=== PATIENT | male | born 1980 | race Caucasian/White ===

== ENCOUNTER 2017-04-21 19:55 | Emergency (ER) | payer MEDICARE, MEDICAID ==
[~2017-04-21] VITALS: Ht 182.9 cm; Wt 99.0 kg
[~2017-04-21 19:55] MED LIST: NO HOME MEDS
[2017-04-21] MEDS ORDERED: acetaminophen 325mg tablet PO ONE (21:05)
[2017-04-21] MEDS ORDERED: HYDR-3965 PO (21:38)
[2017-04-21] MEDS ORDERED: AMOX500C2 PO (21:38)
[2017-04-21] MEDS ORDERED: ONDA4TAB9 PO (21:38)
[2017-04-21 22:41] VITALS: BP 128/80
== END 2017-04-21 22:43 | disposition home or self-care (01) ==
LOC: ER 19:55
DX: S42.401A Unspecified fracture of lower end of right humerus, initial encounter for closed fracture (principal); K08.89 Other specified disorders of teeth and supporting structures; K00.7 Teething syndrome; K02.9 Dental caries, unspecified; F12.10 Cannabis abuse, uncomplicated; Z88.8 Allergy status to other drugs, medicaments and biological substances; Z59.0 Homelessness; Z79.899 Other long term (current) drug therapy; X50.1XXA Overexertion from prolonged static or awkward postures, initial encounter; Y93.89 Activity, other specified; Y92.89 Other specified places as the place of occurrence of the external cause; Y99.8 Other external cause status
CPT/HCPCS: 29105; 73080; 99284

== ENCOUNTER 2017-05-31 09:35 | Emergency (ER) | payer MEDICARE, MEDICAID ==
[~2017-05-31] VITALS: Ht 177.8 cm; Wt 97.7 kg
[2017-05-31] MEDS ORDERED: normal saline 1000ML IV soln IVB ONE (09:40)
[2017-05-31 09:50] LABS: BASOPHILS % (AUTO) 0.4 % (0-1); EOSINOPHILS # (AUTO) 0.2 X10'3 (0-0.9); EOSINOPHILS % (AUTO) 1.6 % (0-6); HEMATOCRIT 44.2 % (42.0-52.0); HEMOGLOBIN 15.8 g/dl (14.0-17.9); LYMPHOCYTES # (AUTO) 3.4 X10'3 (1.1-4.8); LYMPHOCYTES % (AUTO) 34.9 % (21-51); MEAN CORPUSCULAR HEMOGLOBIN 32.7 PG (27.0-31.0); MEAN CORPUSCULAR HGB CONC 35.8 % (33.0-36.5); MEAN CORPUSCULAR VOLUME 91.4 FL (78-98); MEAN PLATELET VOLUME 7.1 FL (7.4-10.4); MONOCYTES # (AUTO) 0.6 X10'3 (0-0.9); MONOCYTES % (AUTO) 6.6 % (2-12); NEUTROPHILS # (AUTO) 5.6 X10'3 (1.8-7.7); NEUTROPHILS % (AUTO) 56.5 % (42-75); PLATELET COUNT 257 X10'3 (140-440); RED BLOOD COUNT 4.83 X10'6 (4.70-6.10); RED CELL DISTRIBUTION WIDTH 13.6 % (11.5-14.5); WHITE BLOOD COUNT 9.9 X10'3 (4.5-11.0)
[2017-05-31 10:08] LABS: ALANINE AMINOTRANSFERASE 26 U/L (12-78); ALBUMIN 3.4 G/DL (3.4-5.0); ALKALINE PHOSPHATASE 63 IU/L (46-116); ANION GAP 10 (8-16); ASPARTATE AMINO TRANSFERASE 23 U/L (10-37); BILIRUBIN,TOTAL 0.3 MG/DL (0.1-1.0); BLOOD UREA NITROGEN 13 MG/DL (7-18); BUN/CREATININE RATIO 18.1 (5.4-32.0); CALCIUM 8.5 MG/DL (8.5-10.1); CHLORIDE 104 MMOL/L (99-107); CREATININE 0.72 MG/DL (0.60-1.10); GLUCOSE 102 MG/DL (70-104); INR 0.9 INR; PARTIAL THROMBOPLASTIN TIME 24 SECONDS (22-32); POTASSIUM 3.6 MMOL/L (3.5-5.1); PROTHROMBIN TIME 9.8 SECONDS (9.0-12.0); SODIUM 140 MMOL/L (135-145); TOTAL CARBON DIOXIDE 26.4 MMOL/L (24-32); TOTAL PROTEIN 6.8 G/DL (6.4-8.2); eGFR > 90 ML/MIN
[2017-05-31 10:10] LABS: ACETAMINOPHEN < 2.0 UG/ML (10-30); ETHANOL 0.319 GM/DL (0.0-0.010)
[2017-05-31 10:37] LABS: CLARITY,URINE Clear (Clear); COLOR,URINE Yellow (Yellow); GLUCOSE, URINE Negative (Neg); KETONES,URINE Negative (Neg); LEUKOCYTE ESTERASE ,URINE Negative (Neg); NITRITES, URINE Negative (Neg); OCCULT BLOOD,URINE Negative (Neg); PROTEIN,URINE Negative (Neg); UROBILINOGEN,URINE 0.2 E.U/dL (0.2-1.0)
[2017-05-31 10:38] LABS: UA COLLECTION TYPE CLN CATCH MIDSTREAM
[2017-05-31 10:42] LABS: URINE AMPHETAMINE SCREEN NEGATIVE (Neg); URINE BARBITUATE SCREEN NEGATIVE (Neg); URINE BENZODIAZEPINES SCREEN NEGATIVE (Neg); URINE CANNABINOID SCREEN POSITIVE (Neg); URINE COCAINE SCREEN NEGATIVE (Neg); URINE METHADONE SCREEN NEGATIVE (Neg); URINE OPIATE SCREEN NEGATIVE (Neg); URINE PHENCYCLIDINE SCREEN NEGATIVE (Neg)
[2017-05-31 14:58] VITALS: BP 112/47
== END 2017-05-31 14:50 ==
LOC: ER 09:35
DX: F10.129 Alcohol abuse with intoxication, unspecified (principal); G93.41 Metabolic encephalopathy; F29 Unspecified psychosis not due to a substance or known physiological condition; F23 Brief psychotic disorder; M06.9 Rheumatoid arthritis, unspecified; F15.90 Other stimulant use, unspecified, uncomplicated; F12.90 Cannabis use, unspecified, uncomplicated; Z59.0 Homelessness; Z88.6 Allergy status to analgesic agent; Z60.2 Problems related to living alone; Z56.0 Unemployment, unspecified
CPT/HCPCS: 36415; 71045; 80053; 80305; 80320; 80329; 81003; 83735; 84484; 85025; 85610; 85730; 96360; 99291; J7030

== ENCOUNTER 2024-08-17 12:58 | Emergency (ER) | payer MEDICARE, MEDICAID ==
[~2024-08-17] VITALS: Ht 170.2 cm; Wt 175.0 kg
[2024-08-17 12:59] VITALS: TEMP 97.8
--- NOTE | 2024-08-17 13:01 | Physician Documentation ---
History of Present Illness ~ Stated Complaint: OD Time Seen by MD: 13:01 Primary Medical Doctor: None HPI 4 x2 nasal, 4 iv opa right nare 44-year-old male presents to the ED with a suspected of fentanyl overdose. According to EMS he was receiving assisted ventilations on [place] received a total of 8 mg of nasal Narcan without a positive affect after receiving 4 mg IV there was a positive affect and patient became responsive and begin to follow up commands. Patient reports smoking fentanyl denies any alcohol use. Patient has been tachycardic and upon arrival was 144 beats per minute Day of Ingestion: August 17, 2024 Medication Reconciliation Allergies: Coded Allergies: ibuprofen (Verified Allergy, Unknown, 04/21/17) Scheduled Naloxone HCl (Narcan), 1 SPRAYS BOTHNARES ONCE Miscellaneous Medications Home Med List (No Home Medications), (Reported) Past Medical History Past Medical History: UTI, Rheumatoid Arthritis Past Surgical History: no surgical history Patient History: Patient reports no known family medical history. Alcohol Use: Occasionally Drug Use: marijuana, methamphetamine Lives with: Alone Lives In: Homeless Occupation: unemployed Review of Systems All Other Systems at this time: Reviewed and Negative ROS As stated above in the HPI, otherwise all systems are reviewed and negative. Physical Exam Physical Exam General: Alert, no apparent distress. grosslylarge body habitus Respiratory: Lungs clear, no respiratory distress. Chest: No accessory muscle use. Cardiovascular: Regular rate and rhythm, no murmurs. Gastrointestinal: Soft, nontender, nondistended. Bowels sounds present. Extremities: Normal range of motion, no deformity. Neurologic: Oriented x4. Psychiatric: Normal mood and affect. Skin: Normal color, warm and dry. No edema, no ecchymosis. Progress Results/Orders Results/Orders Orders - ASHISH ELLISON FIRE PRODUCTION OPERATOR Chest,Single View (08/17/24 13:04) Monitor (08/17/24 13:04) Saline Lock (08/17/24 13:04) Oxygen (08/17/24 13:04) Hs Troponin I W Calculations (08/17/24 15:04) Hs Troponin I W Calculations (08/17/24 16:04) Completed Orders - ASHISH ELLISON FIRE PRODUCTION OPERATOR Naloxone 2mg/2ml Inj (Narcan 2mg/2ml Inj (08/17/24 13:02) Chest,Single View (08/17/24 13:04) Cbc/Diff (08/17/24 13:04) PBNP (08/17/24 13:04) Electrocardiogram (08/17/24 13:04) CMP (08/17/24 13:04) Hs Troponin I W Calculations (08/17/24 13:04) Vital Signs 08/17/24 08/17/24 12:59 14:22 Temp 97.8 Pulse 145 123 Resp 25 20 B/P (MAP) 159/86 148/97 (114) Pulse Ox 95 95 O2 Flow Rate 0 Laboratory Tests Test 08/17/24 13:28 White Blood Count 14.0 H Red Blood Count 5.15 Hemoglobin 14.8 Hematocrit 43.4 Mean Corpuscular Volume 84.3 Mean Corpuscular Hemoglobin 28.7 Mean Corpuscular Hemoglobin Concent 34.1 Red Cell Distribution Width 14.9 H Platelet Count 289 Mean Platelet Volume 7.8 Neutrophils (%) (Auto) 80.1 H Lymphocytes (%) (Auto) 14.8 L Monocytes (%) (Auto) 4.2 Eosinophils (%) (Auto) 0.4 Basophils (%) (Auto) 0.5 Neutrophils # (Auto) 11.2 H Lymphocytes # (Auto) 2.1 Monocytes # (Auto) 0.6 Eosinophils # (Auto) 0.1 Basophils # (Auto) 0.1 CBC Comment Sodium Level 141 Potassium Level 3.6 Chloride Level 106 Carbon Dioxide Level 23.0 L Anion Gap 12 Blood Urea Nitrogen 19 H Creatinine 1.09 Estimated GFR/1.73 m2 73 BUN/Creatinine Ratio 17.4 Glucose Level 148 H Calcium Level 8.6 Total Bilirubin 0.5 Aspartate Amino Transf (AST/SGOT) 25 Alanine Aminotransferase (ALT/SGPT) 45 Alkaline Phosphatase 71 Troponin I High Sensitivity 14 Pro-B-Type Natriuretic Peptide 147 H Total Protein 7.1 Albumin 3.4 Globulin 3.7 Albumin/Globulin Ratio 0.9 L Chemistry Comments Medical Decision Making Findings THIS PLEASANT 44-YEAR-OLD MALE WITH A FENTANYL ABUSE PROBLEM HAS BEEN STABLE THROUGHOUT HIS STAY HERE IN THE ED. LABORATORY RESULTS ARE OVERALL REASSURING OTHER THAN HAVING A MODERATELY ELEVATED PRO BNP. AND THIS CORRELATES WITH WORSENING HEALTH CONDITION FOR THE PATIENT CONSIDERING HIS BODY HABITUS AND RECREATIONAL DRUG USE.. I DID OFFER THE PATIENT ADMISSION FOR CARDIOVASCULAR EVALUATION AND LIKELY AN ECHO HOWEVER PATIENT ADAMANTLY REFUSED. SHE INDICATED THAT HE WOULD LIKE TO LEAVE AGAINST MEDICAL ADVICE. PATIENT IS ALERT ORIENTED AND APPROPRIATE TO THE SITUATION. PATIENT HAS TACHYCARDIA HAS A REDUCED MODESTLY DOWN TO 122 FROM 144 UPON ARRIVAL. I SUSPECT PATIENT IS TACHYCARDIC AT BASELINE. HE IS NOT PRESENTING ANY ACUTE DISTRESS. Differential Dx:Considerations: Include: Alcohol abuse, Anxiety, Bipolar disorder, Conversion disorder, Delirium, Depression, Drug Overdose-Accidental, Drug Overdose-Intentional, Encephalopathy, Hallucinations, Homicidal, Liver failure, Panic disorder, Personality disorder, Renal failure, Respiratory failure, Schizophrenia, Substance abuse, Suicidal attempt, Suidical gesture, Other Departure Disposition: LEFT AGAINST MEDICAL ADVICE Impression: Primary Impression: Poisoning by opiate or related narcotic Additional Impression: Elevated brain natriuretic peptide (BNP) level Condition: Fair Discharge Instructions: Overdose, Adult Referrals: NO PRIMARY CARE PROVIDER (PCP) Prescriptions Naloxone HCl (Narcan) 4 Mg/Actuation [place] 1 SPRAYS BOTHNARES ONCE for 14 Days, #1 EA 0 Refills Prov: ASHISH ELLISON NP 08/17/24 Signature Scribe Signature: G Attestation: The note accurately reflects work and decisions made by me.Ashish Steel NP 08/17/24 14:44 ASHISH ELLISON NP August 17, 2024 13:01
[2024-08-17] MEDS ORDERED: naloxone 2mg/2ml inj IV STA (13:02)
--- NOTE | 2024-08-17 13:05 | ELECTROCARDIOGRAPH REPORT ---
[facility] Test Date: 2024-08-17 Test Time: 13:00:19 Pat Name: CELESTINO CORTEZ Department: EMERGENCY ROOM Room: Gender: M Rug Frame Mounter: NILDA : 1980 Requested By: ISMAEL ELLISON Order Number: [id number] Reading MD: Measurements Intervals [place] Rate: 144 P: 35 MD: 115 QRS: 70 QRSD: 107 T: 40 QT: 287 QTc: 444 Interpretive Statements Sinus tachycardia Probable anteroseptal infarct, old Borderline ST depression, diffuse leads Please click the below link to view image of tracing.
--- NOTE | 2024-08-17 13:36 | RADIOLOGY REPORT ---
EXAM: DI CHEST,SINGLE VIEW Indication: CP Technique: Single frontal view of the chest was obtained Comparison: None FINDINGS: Lines and Tubes: None Lungs: No focal consolidation. Pleura: No effusion. No pneumothorax. Cardiomediastinal contours: Unremarkable Bones: No acute osseous abnormality. IMPRESSION: No acute cardiopulmonary disease.
[2024-08-17 13:54] LABS: BASOPHILS # (AUTO) 0.1 X10'3 (0-0.2); BASOPHILS % (AUTO) 0.5 % (0-1); EOSINOPHILS # (AUTO) 0.1 X10'3 (0-0.9); EOSINOPHILS % (AUTO) 0.4 % (0-6); HEMATOCRIT 43.4 % (42.0-52.0); HEMOGLOBIN 14.8 g/dl (14.0-17.9); LYMPHOCYTES # (AUTO) 2.1 X10'3 (1.1-4.8); LYMPHOCYTES % (AUTO) 14.8 % (21-51); MEAN CORPUSCULAR HEMOGLOBIN 28.7 PG (27.0-31.0); MEAN CORPUSCULAR HGB CONC 34.1 g/dL (33.0-36.5); MEAN CORPUSCULAR VOLUME 84.3 FL (78-98); MEAN PLATELET VOLUME 7.8 FL (7.4-10.4); MONOCYTES # (AUTO) 0.6 X10'3 (0-0.9); MONOCYTES % (AUTO) 4.2 % (2-12); NEUTROPHILS # (AUTO) 11.2 X10'3 (1.8-7.7); NEUTROPHILS % (AUTO) 80.1 % (42-75); PLATELET COUNT 289 X10'3 (140-440); RED BLOOD COUNT 5.15 X10'6 (4.70-6.10); RED CELL DISTRIBUTION WIDTH 14.9 % (11.5-14.5)
[2024-08-17 14:21] LABS: ALANINE AMINOTRANSFERASE 45 U/L (12-78); ALBUMIN 3.4 G/DL (3.4-5.0); ALBUMIN/GLOBULIN RATIO 0.9 (1.1-1.5); ALKALINE PHOSPHATASE 71 IU/L (46-116); ANION GAP 12 (8-16); ASPARTATE AMINO TRANSFERASE 25 U/L (10-37); BILIRUBIN,TOTAL 0.5 MG/DL (0.1-1.0); BLOOD UREA NITROGEN 19 MG/DL (7-18); BUN/CREATININE RATIO 17.4 (10.0-20.0); CALCIUM 8.6 MG/DL (8.5-10.1); CHLORIDE 106 MMOL/L (99-107); CREATININE 1.09 MG/DL (0.60-1.10); GLUCOSE 148 MG/DL (70-104); POTASSIUM 3.6 MMOL/L (3.5-5.1); SODIUM 141 MMOL/L (135-145); TOTAL PROTEIN 7.1 G/DL (6.4-8.2); eCRCL 79 ML/MIN; eGFR 73 ML/MIN
[2024-08-17 14:22] VITALS: BP 148/97; PULSE 123; RESP 20; O2SAT 95
[2024-08-17 14:29] LABS: PRO BRAIN NATRIURETIC PEPTIDE 147 PG/ML (0-125)
[2024-08-17] MEDS ORDERED: NALO4SPR BOTHNARES (14:44)
== END 2024-08-17 15:04 | disposition left against medical advice (07) ==
LOC: ER 12:58
DX: T40.601A Poisoning by unspecified narcotics, accidental (unintentional), initial encounter (principal); R00.0 Tachycardia, unspecified; R79.89 Other specified abnormal findings of blood chemistry; M06.9 Rheumatoid arthritis, unspecified; Z88.6 Allergy status to analgesic agent; Y92.89 Other specified places as the place of occurrence of the external cause
CPT/HCPCS: 36415; 71045; 80053; 83880; 84484; 85025; 93005; 99285

== ENCOUNTER 2024-11-01 00:13 | Emergency (ER) | payer MEDICARE, MEDICAID ==
[~2024-11-01] VITALS: Ht 172.7 cm; Wt 153.4 kg
[~2024-11-01 00:13] MED LIST changes: +NALO4SPR BOTHNARES
--- NOTE | 2024-11-01 00:21 | Physician Documentation ---
History of Present Illness ~ General Stated Complaint: DRY FOOT Time Seen by MD: 00:21 OK to notify your PCP?: Yes Primary Medical Doctor: None Source: patient, RN/MD, RN notes reviewed, old records Mode of Arrival: POV Exam Limitations: no limitations History of Present Illness Initial Comments This patient is a 44 y/o male who presents to the ED with chief complaint of dry and cracked feet. The patient states that over the past few days they have then increasingly more dry and irritated. He states they have more recently become painful especially on his heels. He denied any wounds, redness, swelling, fevers or shortness of breath. Patient denies any associated symptoms at this time. Patient denies any alleviating or exacerbating factors. Medication Reconciliation Allergies: Coded Allergies: ibuprofen (Verified Allergy, Unknown, 04/21/17) Scheduled Naloxone HCl (Narcan), 1 SPRAYS BOTHNARES ONCE Miscellaneous Medications Home Med List (No Home Medications), (Reported) Past Medical History Past Medical History: UTI, Rheumatoid Arthritis Past Surgical History: no surgical history Patient History: Patient reports no known family medical history. Smoking Status: Current every day smoker Alcohol Use: Occasionally Drug Use: marijuana, methamphetamine Lives with: Alone Lives In: Homeless Occupation: unemployed Review of Systems All Other Systems at this time: Reviewed and Negative Constitutional: Reports: see HPI Physical Exam Physical Exam Vital Signs: RN Vital Signs have been reviewed: Yes Physical Exam General: The patient is well developed, well nourished, nontoxic appearing and is in no acute distress. Skin: Patient with dry and cracked skin to bilateral heels, no signs of cellulitis. [place], warm and dry with no rashes. HEENT: Head was normocephalic and atraumatic. Eyes - pupils equal, round, reactive to light and accommodation. Extraocular movements were intact. Conjunctivae were nonicteric. The mouth and oropharynx were clear with moist mucous membranes. There were no pharyngeal exudates or erythema. Neck: Supple and nontender. There was no jugular venous distention, lymphaden opathy, thyromegaly or masses. Chest: Clear to auscultation bilaterally without wheezes, rales or rhonchi. No accessory muscle use. No dullness to percussion. Heart: Rate regular and rhythmic. S1, S2. No murmurs. Palpation of the chest wall was normal. No rubs or thrills. Abdomen: Soft, nontender and nondistended. Positive bowel sounds. No guarding or rebound. No hepatosplenomegaly or palpable masses. Extremities: (SEE SKIN) Edema to bilateral lower extremities. Otherwise no cyanosis or clubbing. The patient moves all extremities. Pulses were equal and symmetric. Neurologic: Cranial nerves II-XII were intact. Sensation was intact to light touch throughout. Motor strength was 5/5 in all four extremities. Deep tendon reflexes were intact in both upper and lower extremities. Psychologic: The patient was oriented to person, place and time. The patient demonstrated appropriate judgement and insight. Progress Results/Orders Reviewed/noted all lab results: Yes Results/Orders Completed Orders - NIMO MCNAMARA MD Hydrocodone/Apap 5/325mg Tab ([place] 5/32 (11/01/24 00:25) Medications Received in ER Medications (Trade) Dose Ordered Sig/Kiya Route PRN Reason Start Time Stop Time Status Last Admin Dose Admin ([place] 5/325mg tablet) 1 tab ONCE ONCE PO 11/01/24 00:25 11/01/24 00:26 DC 11/01/24 00:40 1 TAB Vital Signs 11/01/24 00:18 Pulse 87 Resp 16 B/P (MAP) 137/77 Pulse Ox 94 O2 Flow Rate 0 Re-Evaluation Re-Evaluation : Re-Evaluation: Unchanged Progress Patient was seen and examined. Patient is given reassurance. The patient had some dry feet some chronic calluses and a healing burn. Extremities are a bit red but no signs of cellulitis at this time. Patient is given reassurance supportive care measures keep your feet clean as well as moisturizers however he is homeless lives at [facility] so as ability to have a manicure are somewhat difficult. Patient was asking for his nails to be cut his nails are fine we will not cut his nails we did recommend that he can follow up at the [facility] then. Patient was asking for pain medications he was given a low-dose [place] 5 mg and discharged home. No antibiotics were given Medical Decision Making Additional info obtained from: old records Departure Time of Disposition: 00:21 Disposition: 01 HOME / SELF CARE / HOMELESS Impression: Primary Impression: Encounter for medical screening examination Condition: Stable Discharge Instructions: Medical Screening Exam Additional Instructions: [facility] as [facility] offer medical and psychiatric services from 7:30 a.m. to 3:00 p.m. on Fridays. You may refer to the resources included in your paperwork. Referrals: NO PRIMARY CARE PROVIDER (PCP) Education Educated: Patient Educated regarding: diagnosis, treatment, need for follow up Signature Scribe Signature: Scribed for Nimo Mcnamara MD by Ange Mora . 11/01/24 00:21 Attestation: The note accurately reflects work and decisions made by me.Nimo Mcnamara MD 11/01/24 00:21 NIMO MCNAMARA MD Nov 01, 2024 00:21
[2024-11-01] MEDS: HYDROcodone/acetaminophen 5mg/325mg tablet PO ONE (00:40)
[2024-11-01 01:04] VITALS: BP 127/77; PULSE 86; RESP 18; TEMP 98.7; O2SAT 99
[2024-11-02] MEDS ORDERED: BUTE12CR TOP (06:33)
== END 2024-11-01 01:05 | disposition home or self-care (01) ==
LOC: ER 00:14
DX: Z00.8 Encounter for other general examination (principal); F12.90 Cannabis use, unspecified, uncomplicated; F17.200 Nicotine dependence, unspecified, uncomplicated; F15.10 Other stimulant abuse, uncomplicated; M06.9 Rheumatoid arthritis, unspecified; Z59.00 Homelessness unspecified; Z88.6 Allergy status to analgesic agent
CPT/HCPCS: 99283

== ENCOUNTER 2024-11-02 04:34 | Emergency (ER) | payer MEDICARE, MEDICAID ==
[~2024-11-02] VITALS: Ht 172.7 cm; Wt 153.0 kg
[2024-11-02 06:29] VITALS: TEMP 97.9
[2024-11-02] MEDS ORDERED: BUTE12CR TOP (06:33)
--- NOTE | 2024-11-02 06:35 | Physician Documentation ---
History of Present Illness ~ Chief Complaint: Foot pain Stated Complaint: FOOT PAIN Time Seen by MD: 06:04 Primary Medical Doctor: None Source: patient Mode of Arrival: POV Exam Limitations: no limitations HPI Patient in with pain in both of his feet. Was seen here yesterday and received [place]. Denies any injury. States that he has an apartment and did wash his feet yesterday. States the problem started 10 years ago in [place]. Wears p lastic shoes. Tetanus witin 5 years: No Medication Reconciliation Allergies: Coded Allergies: ibuprofen (Verified Allergy, Unknown, 04/21/17) Scheduled Butenafine HCl (Lotrimin Ultra), 1 APPLIC TOP Q12H Naloxone HCl (Narcan), 1 SPRAYS BOTHNARES ONCE Miscellaneous Medications Home Med List (No Home Medications), (Reported) Past Medical History Past Medical History: UTI, Rheumatoid Arthritis Past Surgical History: no surgical history Patient History: Patient reports no known family medical history. Alcohol Use: Occasionally Drug Use: marijuana, methamphetamine Lives with: Alone Lives In: Homeless Occupation: unemployed Review of Systems All Other Systems at this time: Reviewed and Negative Physical Exam Vital Signs: Temperature: 97.9, Heart Rate: 100, Respiratory Rate: 16, BP: 138/75, Pulse Oximetry: 100, Weight: 153.000 Oxygen Flow Rate: 0 General Appearance: alert, WD/WN Head: normal inspection Neck: non-tender, full range of motion Respiratory: normal breath sounds, no respiratory distress Cardiovascular: regular rate, rhythm, no edema Feet Bilateral feet with white lice tissue along the bottom consistent with fungal infection, no obvious bacterial infection; good pulses and sensation Distal Function: no motor deficit Skin Bilateral fungal infections on the bottom of the feet, moist Neurologic: oriented x4, memory intact Psychiatric: normal mood/affect Progress Progress Note Patient with athlete's foot. Giving script for Lotrimin. Gave care in structions for cleaning and allowing feet to dry and not putting them in the plastic shoes. He is to apply powder a couple of times a day to keep feet dry. Discharged in good condition to follow up with PCP if not improving. Results/Orders Results/Orders Vital Signs 11/02/24 11/02/24 11/02/24 11/02/24 04:40 06:05 06:29 06:42 Temp 97.9 97.9 97.9 Pulse 83 71 100 79 Resp 16 18 16 20 B/P (MAP) 145/79 144/85 (104) 138/75 (96) 139/79 Pulse Ox 97 100 100 97 O2 Flow Rate 0 0 0 Departure Impression: Primary Impression: Fungal infection Condition: Stable Discharge Instructions: Athlete's Foot, [id number] Additional Instructions: You need to wash your feet daily then dry thoroughly before putting any shoes or socks on. Apply the Lotrimin antifungal cream twice a day on the bottom of your feet. You can get this [id number] as well. A couple of times a day you should also put powder on your feet like a gold vargas powder in order to keep yo ur skin dry. Follow up with your doctor if not improving. Referrals: NO PRIMARY CARE PROVIDER (PCP) Prescriptions Butenafine HCl (Lotrimin Ultra) 1 % Cream..g. 1 APPLIC TOP Q12H for 14 Days, #30 GM 0 Refills Prov: DIANE AGUILAR MD 11/02/24 Education Educated: Patient Educated regarding: diagnosis, treatment, need for follow up Signature Scribe Signature: no scribe used Attestation: no scribe used DIANE AGUILAR MD Nov 02, 2024 06:35
[2024-11-02 06:42] VITALS: BP 139/79; PULSE 79; RESP 20; O2SAT 97
== END 2024-11-02 06:45 | disposition home or self-care (01) ==
LOC: ER 04:35
DX: B35.3 Tinea pedis (principal); M06.9 Rheumatoid arthritis, unspecified; F12.90 Cannabis use, unspecified, uncomplicated; F15.90 Other stimulant use, unspecified, uncomplicated; Z87.440 Personal history of urinary (tract) infections; Z88.6 Allergy status to analgesic agent; Z59.00 Homelessness unspecified
CPT/HCPCS: 99282

== ENCOUNTER 2024-11-22 18:26 | Emergency (ER) | payer MEDICARE, MEDICAID ==
[~2024-11-22] VITALS: Ht 172.7 cm; Wt 159.1 kg
[~2024-11-22 18:26] MED LIST changes: +BUTE12CR TOP
[2024-11-22] MEDS: HYDROcodone/acetaminophen 5mg/325mg tablet PO ONE (21:09)
[2024-11-22] MEDS ORDERED: CEPH-585 PO (21:15)
--- NOTE | 2024-11-22 21:15 | Physician Documentation ---
History of Present Illness ~ Chief Complaint: Foot pain Stated Complaint: FOOT PAIN Time Seen by MD: 20:51 Primary Medical Doctor: None HPI Patient is a 44-year-old gentleman that presents to the emergency department for bilateral foot pain with associated extremity edema times several weeks. She reports this is a chronic problem for him. Reports that he is currently on house and has to walk around often and does not have proper foot coverings or the ability to keep his feet clean and dry. Tetanus witin 5 years: No Medication Reconciliation Allergies: Coded Allergies: ibuprofen (Verified Allergy, Unknown, 04/21/17) Scheduled Butenafine HCl (Lotrimin Ultra), 1 APPLIC TOP Q12H Cephalexin*Monohydrate* (Keflex*), 1 CAP PO QID Naloxone HCl (Narcan), 1 SPRAYS BOTHNARES ONCE Miscellaneous Medications Home Med List (No Home Medications), (Reported) Past Medical History Past Medical History: UTI, Rheumatoid Arthritis Past Surgical History: no surgical history Patient History: Patient reports no known family medical history. Alcohol Use: Occasionally Drug Use: marijuana, methamphetamine Lives with: Alone Lives In: Homeless Occupation: unemployed Review of Systems ROS As stated above in the HPI, otherwise all systems are reviewed and negative. Physical Exam Vital Signs: Temperature: 98.0, Heart Rate: 70, Respiratory Rate: 16, BP: 143/81, Pulse Oximetry: 97, Weight: 159.090 Oxygen Flow Rate: 0 Physical Exam VITALS: Reviewed and as above. GENERAL: Alert, no apparent distress. HEENT: Normocephalic, atraumatic, PERRL, EOMI, dry mucosa, no erythema RESPIRATORY: Lungs clear, normal breath sounds, no respiratory distress. CHEST: No accessory muscle use, no retractions CV: Regular rate, rhythm, no edema, no murmur, No: JVD GI: Soft, non-tender, bowels sounds present, no rebound, guarding, or rigidity BACK: No CVA tenderness, or swelling MUSCULOSKELETAL No deformities, bilateral lower extremity edema tissue maceration to the bottom of feet bilaterally SKIN: Warm and dry, edema patient bilateral lower extremities and tissue maceration to the bottom of feet bilaterally NEURO: Oriented x4, No motor or sensory deficit PSYCH: Normal mood and affect, no agitation Progress Results/Orders Results/Orders Completed Orders - AZEB MTZ ADULT CARE MANAGER Cbc/Diff (11/22/24 20:59) CMP (11/22/24 20:59) Hydrocodone/Apap 5/325mg Tab ([place] 5/32 (11/22/24 21:00) [place] (11/22/24 21:00) Medications Received in ER Medications (Trade) Dose Ordered Sig/Kiya Route PRN Reason Start Time Stop Time Status Last Admin Dose Admin ([place] 5/325mg tablet) 1 tab ONCE ONCE PO 11/22/24 21:00 11/22/24 21:01 DC 11/22/24 21:09 1 TAB Vital Signs 11/22/24 18:32 Temp 98.0 Pulse 70 Resp 16 B/P (MAP) 143/81 Pulse Ox 97 O2 Flow Rate 0 Laboratory Tests Test 11/22/24 21:17 White Blood Count 7.7 Red Blood Count 4.39 L Hemoglobin 13.2 L Hematocrit 39.0 L Mean Corpuscular Volume 88.7 Mean Corpuscular Hemoglobin 30.0 Mean Corpuscular Hemoglobin Concent 33.9 Red Cell Distribution Width 14.9 H Platelet Count 222 Mean Platelet Volume 7.4 Neutrophils (%) (Auto) 69.7 Lymphocytes (%) (Auto) 23.0 Monocytes (%) (Auto) 4.9 Eosinophils (%) (Auto) 1.6 Basophils (%) (Auto) 0.8 Neutrophils # (Auto) 5.4 Lymphocytes # (Auto) 1.8 Monocytes # (Auto) 0.4 Eosinophils # (Auto) 0.1 Basophils # (Auto) 0.1 CBC Comment Sodium Level 140 Potassium Level 3.6 Chloride Level 105 Carbon Dioxide Level 27.6 Anion Gap 7 L Blood Urea Nitrogen 8 Creatinine 0.80 Estimated GFR/1.73 m2 > 90 BUN/Creatinine Ratio 10.0 Glucose Level 73 Lactic Acid Level 1.2 Calcium Level 8.5 Total Bilirubin 0.9 Aspartate Amino Transf (AST/SGOT) 56 H Alanine Aminotransferase (ALT/SGPT) 74 Alkaline Phosphatase 92 Total Protein 6.8 Albumin 3.1 L Globulin 3.7 Albumin/Globulin Ratio 0.8 L Chemistry Comments Medical Decision Making Findings This patient presents with initial presentation of local erythema, warmth, swelling concerning for cellulitis. Sensitivity/pain to light touch around the erythematous area. No lymphangitic spread visible and no fluid pockets or fluctuance concerning for abscess noted. Low concern for osteomyelitis or DVT. No immune compromise, bullae, pain out of proportion, or rapid progression concerning for necrotizing fasciitis. Patient to be discharged home with keflex with follow up with their PMD. Foot Diff Dx:Considerations: Include: Abrasion, Arthritis, Cellulitis, Contusion, Dislocation, DJD, Fracture-metatarsal, Fracture-phalynx, Fracture- tarsal, Gout, Hematoma, Ingrown toenail, Laceration, Malunion, Neurovascular injury, Open fracture, Paronychia, Puncture, Rheumatoid, Sprain, Septic, Subungual hematoma, Ulcer, Other Departure Disposition: HOME / SELF CARE / HOMELESS Impression: Primary Impression: Cellulitis Additional Impressions: Foot pain Lower extremity edema Condition: Stable Discharge Instructions: Foot Pain Additional Instructions: This patient presents with initial presentation of local erythema, warmth, swelling concerning for cellulitis. Sensitivity/pain to light touch around the erythematous area. No lymphangitic spread visible and no fluid pockets or fluctuance concerning for abscess noted. Low concern for osteomyelitis or DVT. No immune compromise, bullae, pain out of proportion, or rapid progression concerning for necrotizing fasciitis. Patient to be discharged home with keflex with follow up with their PMD. Return to the emergency department with any worsening of his current symptoms or any additional concerning symptoms that we discussed here today increased redness fever chills nausea vomiting diarrhea or any other concerning symptoms. Patient will present with dry socks and education on the importance of keeping his feet as dry and clean as possible. Referrals: NO PRIMARY CARE PROVIDER (PCP) Prescriptions Cephalexin*Monohydrate* (Keflex*) 500 Mg Capsule 1 CAP PO QID for 7 Days, #28 CAP Prov: AZEB MTZ 11/22/24 Education Educated: Patient Educated regarding: diagnosis, treatment, need for follow up Signature Scribe Signature: A Attestation: Scribed for Azeb Mtz by TYRA Luciano . 11/22/24 22:01 AZEB MTZ Nov 22, 2024 21:15
[2024-11-22 21:27] LABS: MEAN PLATELET VOLUME 7.4 FL (7.4-10.4); RED CELL DISTRIBUTION WIDTH 14.9 % (11.5-14.5)
[2024-11-22 21:39] LABS: CREATININE 0.80 MG/DL (0.60-1.10); TOTAL CARBON DIOXIDE 27.6 MMOL/L (24-32); eCRCL 112 ML/MIN; eGFR > 90 ML/MIN
[2024-11-22 22:24] VITALS: BP 128/84; PULSE 69; RESP 20; TEMP 98.6; O2SAT 98
== END 2024-11-22 22:25 | disposition home or self-care (01) ==
LOC: ER 18:27
DX: L03.116 Cellulitis of left lower limb (principal); L03.115 Cellulitis of right lower limb; M06.9 Rheumatoid arthritis, unspecified; F12.90 Cannabis use, unspecified, uncomplicated; F15.90 Other stimulant use, unspecified, uncomplicated; Z88.6 Allergy status to analgesic agent
CPT/HCPCS: 36415; 80053; 83605; 85025; 99283

== ENCOUNTER 2024-11-29 04:58 | Emergency (ER) | payer MEDICARE, MEDICAID ==
[~2024-11-29] VITALS: Ht 172.7 cm; Wt 160.0 kg
[~2024-11-29 04:58] MED LIST changes: +CEPH-585 PO
[2024-11-29 05:09] VITALS: BP 161/74; PULSE 77; RESP 16; TEMP 98; O2SAT 97
--- NOTE | 2024-11-29 05:10 | Physician Documentation ---
History of Present Illness General Stated Complaint: FOOT PAIN Primary Medical Doctor: None History of Present Illness Initial Comments The patient is a 44-year-old male who is a frequent patient of this emergency department comes in with a complaint of foot pain. Patient states he met the missed his methadone dose yesterday he states he takes 55 mg of methadone for chronic pains. Patient states that he has bilateral foot pain patient has a history of visits for foot pain. Patient denies any fevers chills nausea or vomiting. Patient's symptoms are moderate and persistent he states he has had pain for several days. Medication Reconciliation Allergies: Coded Allergies: ibuprofen (Verified Allergy, Unknown, 04/21/17) Scheduled Butenafine HCl (Lotrimin Ultra), 1 APPLIC TOP Q12H Cephalexin*Monohydrate* (Keflex*), 1 CAP PO QID Naloxone HCl (Narcan), 1 SPRAYS BOTHNARES ONCE Miscellaneous Medications Home Med List (No Home Medications), (Reported) Past Medical History Past Medical History: UTI, Rheumatoid Arthritis Past Surgical History: no surgical history Smoking: Cigarettes Alcohol Use: Occasionally Drug Use: marijuana, methamphetamine Lives with: Alone Lives In: Homeless Occupation: unemployed Review of Systems All Other Systems at this time: Reviewed and Negative Physical Exam Physical Exam Physical Exam VITALS: Reviewed and as above. GENERAL: Alert, no apparent distress. HEENT: Normocephalic, atraumatic, PERRL, EOMI, dry mucosa, no erythema BACK: No CVA tenderness, or swelling MUSCULOSKELETAL: No deformities, no edema SKIN: Warm and dry, no rash there was no significant redness to the feet the patient does have edema to the lower extremities. NEURO: Oriented x4, No motor or sensory deficit PSYCH: Normal mood and affect, no agitation Medical Decision Making Findings Patient with a complaint of chronic pain he is requesting pain medication I told him the only thing I can give him his ibuprofen or Tylenol the patient will receive a dose of Tylenol. Departure Disposition: HOME / SELF CARE / HOMELESS Impression: Primary Impression: Foot pain Qualified Codes: M79.671 - Pain in right foot; M79.672 - Pain in left foot Discharge Instructions: Foot Pain Referrals: NO PRIMARY CARE PROVIDER (PCP) KESHIA MARK MD Nov 29, 2024 05:09
== END 2024-11-29 05:41 | disposition home or self-care (01) ==
LOC: ER 04:58
DX: M79.671 Pain in right foot (principal); M79.672 Pain in left foot; M06.9 Rheumatoid arthritis, unspecified; F12.90 Cannabis use, unspecified, uncomplicated; F15.90 Other stimulant use, unspecified, uncomplicated; Z88.6 Allergy status to analgesic agent
CPT/HCPCS: 99282

== ENCOUNTER 2024-12-15 13:24 | Emergency (ER) | payer MEDICARE, MEDICAID ==
[~2024-12-15] VITALS: Ht 172.7 cm; Wt 109.0 kg
[~2024-12-15 13:24] MED LIST changes: -CEPH-585 PO
[2024-12-15 13:34] VITALS: BP 129/73; PULSE 94; RESP 16; O2SAT 98
--- NOTE | 2024-12-15 15:07 | Physician Documentation ---
History of Present Illness ~ Chief Complaint: Foot pain Stated Complaint: R FOOT PAIN Time Seen by MD: 14:02 Primary Medical Doctor: None HPI Patient is seen today with complaints of pain of his right foot that is been going on for a few days. 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 Patient has no other concern or complaint at this time. He denies any fever or chills. Tetanus witin 5 years: No Medication Reconciliation Allergies: Coded Allergies: ibuprofen (Verified Allergy, Unknown, 12/15/24) Scheduled Butenafine HCl (Lotrimin Ultra), 1 APPLIC TOP Q12H Naloxone HCl (Narcan), 1 SPRAYS BOTHNARES ONCE Sulfamethoxazole/Trimethoprim (Bactrim Ds Tablet), 1 TAB PO Q12H Scheduled PRN Acetaminophen (Tylenol Extra Strength), 2 TAB PO Q6H PRN PRN for pain or fever Miscellaneous Medications Home Med List (No Home Medications), (Reported) Past Medical History Past Medical History: UTI, Rheumatoid Arthritis Past Surgical History: no surgical history Patient History: Patient reports no known family medical history. Alcohol Use: Occasionally Drug Use: marijuana, methamphetamine Lives with: Alone Lives In: Homeless Occupation: unemployed Review of Systems Constitutional: Denies: chills, fever, weakness Eyes: Denies: pain, blurred vision ENT: Denies: ear pain, nose pain, throat pain, mouth pain Respiratory: Denies: cough, shortness of breath Cardiovascular: Denies: chest pain, palpitations Gastrointestinal: Denies: abdominal pain, nausea, vomiting Genitourinary: Denies: burning, dysuria Male Genitalia: Denies: penile discharge, testicular pain Neurological: Denies: headache, dizziness Musculoskeletal: Denies: pain, swelling Integumentary: Denies: rash, lesions Allergic/Immunologic: Denies: hives, itching Hematologic/Lymphatic: Denies: no symptoms reported Psychiatric: Denies: depression, anxiety Physical Exam Vital Signs: Temperature: 97.6, Source: Temporal, Heart Rate: 94, Respiratory Rate: 16, BP: 129/73, Pulse Oximetry: 98, Weight: 109.000 Oxygen Flow Rate: 0 Physical Exam General: Awake and Alert, no acute distress. HEENT: Conjunctiva pink, Sclera clear, Mucus Membranes moist. Neck: Supple without masses and tenderness. Resp: Unlabored. Lungs clear to auscultation bilaterally. Heart: Regular Rate and rhythm, normal S1 and S2 without murmur, rub or gallop. Musculoskeletal: Patient on exam does have chronic appearing open wound of right foot on the dorsum that appears to be from his sandals or flip-flops cutting into his skin. Patient has very poor hygiene. Patient is has not other sore in his left calf on the medial aspect measuring approximately 3 cm x 1-1/2 cm with surrounding erythema. Patient is neurovascularly intact distally. Motor function intact distally. Extremities: No cyanosis,clubbing or edema. Skin: Warm and Dry. Progress Results/Orders Results/Orders Completed Orders - COSME ERWIN Bacitracin Ointment (Bacitracin Ointment (12/15/24 15:17) Medications Received in ER Medications (Trade) Dose Ordered Sig/Kiya Route PRN Reason Start Time Stop Time Status Last Admin Dose Admin (bacitracin ointment) 1 applic ONCE STAT TP 12/15/24 15:17 12/15/24 15:19 DC 12/15/24 15:44 1 APPLIC Vital Signs 12/15/24 13:34 Temp 97.6 Pulse 94 Resp 16 B/P (MAP) 129/73 Pulse Ox 98 O2 Flow Rate 0 Medical Decision Making Findings Patient is seen today with complaints of pain of his right foot that is been going on for a few days. 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 Patient has no other concern or complaint at this time. He denies any fever or chills. Patient was given a new sock in his surgical shoe and we bandage his right foot wound and strongly advised patient to discontinue use of his flip-flops at/sandal. Patient was started on Bactrim DS one tab twice a day sent to patient's pharmacy. Patient will follow up with primary care in 2-5 days if no better as needed sooner. Return to ED with any worsening, concerning or changing symptoms. Prescription of [place] or Xanax at this time is not medically necessary. Prescription of Tylenol sent to patient's pharmacy. Departure Disposition: HOME / SELF CARE / HOMELESS Impression: Primary Impression: Wound, open, foot Qualified Codes: S91.301A - Unspecified open wound, right foot, initial encounter Additional Impression: Wound, open, leg Qualified Codes: S81.802A - Unspecified open wound, left lower leg, initial encounter Condition: Improved Additional Instructions: Patient was given a new sock and a new surgical shoe and we bandaged his right foot wound and strongly advised patient to discontinue use of his flip-flops at/sandal. Patient was started on Bactrim DS one tab twice a day sent to patient's pharmacy. Patient will follow up with primary care in 2-5 days if no better as needed sooner. Return to ED with any worsening, concerning or changing symptoms. Prescription of [place] or Xanax at this time is not medically necessary. Prescription of Tylenol sent to patient's pharmacy. Referrals: NO PRIMARY CARE PROVIDER (PCP) Prescriptions Acetaminophen (Tylenol Extra Strength) 500 Mg Tablet 2 TAB PO Q6H PRN PRN for pain or fever for 7 Days, #56 TAB Prov: COSME ERWIN 12/15/24 Sulfamethoxazole/Trimethoprim (Bactrim Ds Tablet) 800 Mg-160 Mg Tablet 1 TAB PO Q12H for 10 Days, #20 TAB Prov: COSME ERWIN 12/15/24 Acetaminophen (Tylenol Extra Strength) 500 Mg Tablet 2 TAB PO Q6H PRN PRN for pain or fever for 7 Days, #56 TAB Prov: COSME ERWIN 12/15/24 Sulfamethoxazole/Trimethoprim (Bactrim Ds Tablet) 800 Mg-160 Mg Tablet 1 TAB PO Q12H for 10 Days, #20 TAB Prov: COSME ERWIN 12/15/24 Signature Scribe Signature: No scribe Attestation: No scribe COSME ERWIN Dec 15, 2024 15:07
[2024-12-15] MEDS ORDERED: ACET-1025 PO (15:19)
[2024-12-15] MEDS ORDERED: SULF1TAB49 PO (15:19)
[2024-12-15] MEDS: bacitracin 15gm ointment TP STA (15:44)
[2024-12-15 15:56] VITALS: TEMP 97.6
== END 2024-12-15 15:58 | disposition home or self-care (01) ==
LOC: ER 13:24
DX: S91.301A Unspecified open wound, right foot, initial encounter (principal); M06.9 Rheumatoid arthritis, unspecified; F12.90 Cannabis use, unspecified, uncomplicated; F15.90 Other stimulant use, unspecified, uncomplicated; Z88.6 Allergy status to analgesic agent; X58.XXXA Exposure to other specified factors, initial encounter; Y93.89 Activity, other specified; Y92.89 Other specified places as the place of occurrence of the external cause; Y99.8 Other external cause status
CPT/HCPCS: 99283; A6449; L3260

== ENCOUNTER 2024-12-27 05:59 | Emergency (ER) | payer MEDICARE, MEDICAID ==
[~2024-12-27] VITALS: Ht 172.7 cm; Wt 110.0 kg
[2024-12-27 06:11] VITALS: BP 135/86; PULSE 89; RESP 14; TEMP 98; O2SAT 96
== END 2024-12-27 08:39 | disposition left against medical advice (07) ==
LOC: ER 06:00
DX: M79.672 Pain in left foot (principal); M79.671 Pain in right foot; Z88.8 Allergy status to other drugs, medicaments and biological substances; Z53.21 Procedure and treatment not carried out due to patient leaving prior to being seen by health care provider

== ENCOUNTER 2025-01-02 20:39 | Emergency (ER) | payer MEDICARE, MEDICAID | END 2025-01-02 21:34 | disposition left against medical advice (07) | LOC: ER 20:40 | DX: M79.89 Other specified soft tissue disorders (principal); Z53.21 Procedure and treatment not carried out due to patient leaving prior to being seen by health care provider ==

== ENCOUNTER 2025-01-02 23:16 | Emergency (ER) | payer MEDICARE, MEDICAID | END 2025-01-03 00:08 | disposition left against medical advice (07) | LOC: ER 23:17 | DX: M79.673 Pain in unspecified foot (principal); Z53.21 Procedure and treatment not carried out due to patient leaving prior to being seen by health care provider; Z88.6 Allergy status to analgesic agent ==

== ENCOUNTER 2025-01-03 00:14 | Emergency (ER) | payer MEDICARE, MEDICAID ==
[~2025-01-03] VITALS: Ht 172.7 cm; Wt 110.0 kg
[2025-01-03 00:28] VITALS: BP 141/88; PULSE 66; RESP 16; TEMP 97.6; O2SAT 99
--- NOTE | 2025-01-03 03:39 | Physician Documentation ---
HPI ~ General Chief Complaint: Medication Request Stated Complaint: BONE PAIN Time Seen by MD: 03:39 Primary Medical Doctor: None History of Present Illness HPI Comments The patient is well known to this emergency department with frequent ER visits for foot pain, sometimes foot infections, and other complaints. He presents tonight telling me that he has full body pain. He tells me he has been having muscle spasms. He requests Xanax. He requests a muscle relaxant. He requests opiate pain medications. He denies any fevers or other specific complaints. Medication Reconciliation Allergies: Coded Allergies: ibuprofen (Verified Allergy, Unknown, 01/03/25) Scheduled Butenafine HCl (Lotrimin Ultra), 1 APPLIC TOP Q12H Naloxone HCl (Narcan), 1 SPRAYS BOTHNARES ONCE Miscellaneous Medications Home Med List (No Home Medications), (Reported) Past Medical History Past Medical History: UTI, Rheumatoid Arthritis Past Surgical History: no surgical history Patient History: Patient reports no known family medical history. Alcohol Use: Occasionally Drug Use: marijuana, methamphetamine Lives with: Alone Lives In: Homeless Occupation: unemployed Review of Systems Musculoskeletal: Reports: pain Physical Exam Physical Exam Vital Signs: Temperature: 97.6, Heart Rate: 66, Respiratory Rate: 16, BP: 141/88, Pulse Oximetry: 99, Weight: 110.000 Physical Exam General: This is a disheveled middle-aged man with very large hair Heart: Regular rate, normal-appearing peripheral perfusion Lungs: normal work of breathing, speaks in full sentences Extremities: Warm and well-perfused I examined both of his feet. He is wearing sandals. He has multiple calluses and dry skin. There was no significant erythema or findings to suggest cellulitis on his feet. Psychiatric: Bizarre affect. He is calm and cooperative during my exam Progress Results/Orders Results/Orders Completed Orders - SHERIE MOMIN MD Acetaminophen 325mg Tablet (Tylenol Tabl (01/03/25 03:40) Vital Signs 01/03/25 00:28 Temp 97.6 Pulse 66 Resp 16 B/P (MAP) 141/88 Pulse Ox 99 Medical Decision Making Additional Comment The patient presents with full body pain and muscle spasms. He is well known to this emergency department for visits for pain and requesting pain medications. He also has a history of infections to his feet. On my exam he does not have significant cellulitis findings to his feet. He requested multiple times for both opiate medications and benzodiazepines. I explained to him that we do not prescribe these for chronic pain in the emergency department. I did offer Tylenol. Overall, he does not appear to have an acute medical or surgical emergency. Departure Time of Disposition: 03:42 Disposition: 01 HOME / SELF CARE / HOMELESS Impression: Primary Impression: General medical exam Additional Impression: Pain Condition: Stable Discharge Instructions: Acute Pain, Adult Referrals: NO PRIMARY CARE PROVIDER (PCP) Education Educated: Patient Educated regarding: diagnosis, need for follow up Signature Scribe Signature: nilesh Attestation: SHERIE Villalobos MD Jan 03, 2025 03:39
== END 2025-01-03 03:46 | disposition home or self-care (01) ==
LOC: ER 00:16
DX: Z00.00 Encounter for general adult medical examination without abnormal findings (principal); F12.90 Cannabis use, unspecified, uncomplicated; F15.90 Other stimulant use, unspecified, uncomplicated; Z88.6 Allergy status to analgesic agent; Z59.00 Homelessness unspecified; Z56.0 Unemployment, unspecified; Z79.899 Other long term (current) drug therapy; Z72.89 Other problems related to lifestyle; Z60.2 Problems related to living alone
CPT/HCPCS: 99282